=== PATIENT | male | born 1970 | race Hispanic/Latino ===

== ENCOUNTER 2018-09-09 15:56 | Emergency (ER) | payer OTHER ==
[2018-09-09 16:34] VITALS: BP 132/76
--- NOTE | 2018-09-09 16:38 | Event Note ---
ED Screening Note ED Screening Note: pt states that he hurt his back when was younger while lifting and states strained the muscles states they put a cortisone shot and it never hurt again states he has been walking an increased amount pt states that he has disc problems in his lower back also states he is having left lower back pain and left hip pain no PMHx no daily meds no allergies to meds DR. Aguila, orthopedic no fall or injury no BLE numbness or weakness no saddle numbness no bowel or bladder incontinence
--- NOTE | 2018-09-09 16:40 | Emergency Department Report ---
ED Back Pain/Injury HPI - General Chief Complaint: Back Pain/Injury Stated Complaint: HIP/LOWER BACK PAIN Time Seen by Provider: 09/09/18 16:30 Source: patient Limitations: No Limitations - History of Present Illness Initial Comments: pt states that he hurt his back when was "younger while lifting and states strained the muscles" He states they put a cortisone shot and it improved his discomfort. He states he has been walking an increased amount. pt is having chronic left lower back pain and left hip pain. pt states that he has known "disc problems in his lower back also" and has been seeing Dr. Mingo suarez. no PMHx, no daily meds, no allergies to meds. He denies any new fall or injury. no BLE numbness or weakness, no saddle numbness, no bowel or bladder incontinence. pt states that he has chronic right hand weakness and has had an MRI of the head and neck to work it up. - Related Data Previous Rx's Medication Instructions Recorded Last Taken Type Cyclobenzaprine [Flexeril] 10 mg PO QHS PRN #12 tablet 09/09/18 Unknown Rx Ibuprofen [Motrin 800 MG tab] 800 mg PO Q8HR PRN #14 tablet 09/09/18 Unknown Rx Prednisone [predniSONE 10 mg 10 mg PO .TAPER #1 tab.ds.pk 09/09/18 Unknown Rx (6-Day Pack, 21 Tabs)] Allergies Allergy/AdvReac Type Severity Reaction Status Date / Time No Known Allergies Allergy Unverified 09/09/18 16:31 ED Review of Systems ROS: Stated complaint: HIP/LOWER BACK PAIN Other details as noted in HPI Comment: All other systems reviewed and negative ED Past Medical Hx - Past Medical History Previous Medical History?: No - Surgical History Past Surgical History?: No - Social History Smoking Status: Current Every Day Smoker Substance Use Type: Alcohol - Medications Home Medications: Home Medications Medication Instructions Recorded Confirmed Last Taken Type Cyclobenzaprine [Flexeril] 10 mg PO QHS PRN #12 tablet 09/09/18 Unknown Rx Ibuprofen [Motrin 800 MG tab] 800 mg PO Q8HR PRN #14 tablet 09/09/18 Unknown Rx Prednisone [predniSONE 10 mg 10 mg PO .TAPER #1 tab.ds.pk 09/09/18 Unknown Rx (6-Day Pack, 21 Tabs)] ED Physical Exam - General Limitations: No Limitations General appearance: alert, in no apparent distress - Head Head exam: Present: atraumatic, normocephalic - Eye Eye exam: Present: normal appearance, PERRL - ENT ENT exam: Present: mucous membranes moist - Respiratory Respiratory exam: Present: normal lung sounds bilaterally. Absent: respiratory distress, wheezes, rales, rhonchi, stridor, chest wall tenderness, accessory muscle use, decreased breath sounds, prolonged expiratory - Cardiovascular Cardiovascular Exam: Present: regular rate, normal rhythm, normal heart sounds. Absent: systolic murmur, diastolic murmur, rubs, gallop - Extremities Exam Extremities exam: Present: other (FROM of the left hip, no bony TTP of the left hip, has discomfort in the left, lower back with SLR) - Back Exam Back exam: Present: normal inspection, full ROM, paraspinal tenderness (bilateral lumbar paraspinal muscular TTP, no midline C-spine, T-spine, or L- spine tenderness). 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 He states he has been walking an increased amount. pt is having chronic left lower back pain and left hip pain. pt states that he has known "disc problems in his lower back also" and has been seeing Dr. Mingo suarez. no PMHx, no daily meds, no allergies to meds. He denies any new fall or injury. no BLE numbness or weakness, no saddle numbness, no bowel or bladder incontinence. pt states that he has chronic right hand weakness and has had an MRI of the head and neck to work it up. vitals are stable. on exam: FROM of the left hip, no bony TTP of the left hip, has discomfort in the left, lower back with SLR. bilateral lumbar paraspinal muscular TTP, no midline C-spine, T-spine, or L- spine tenderness, 5/5 strength in the BLE, no sensory deficit in the BLE. pt given anti-inflammatory, muscle relaxer, and medrol dose pack. advised to please follow up with an orthopedic doctor in the next 2-3 days. take medication as prescribed. do not drive or operate heavy machinery while taking muscle relaxer. may use heat, ice, epsom salt bath, rest. return to the emergency room for any new or worsening symptoms. - Differential Diagnosis strain, sprain, DDD, DJD, sciatica Critical care attestation.: If time is entered above; I have spent that time in minutes in the direct care of this critically ill patient, excluding procedure time. ED Disposition Clinical Impression: Chronic left hip pain Chronic low back pain Qualifiers: Back pain laterality: left Sciatica presence: without sciatica Qualified Code(s): M54.5 - Low back pain Disposition: TO HOME OR SELFCARE Is pt being admited?: No Does the pt Need Aspirin: No Condition: Stable Instructions: Low Back Strain (ED), Sciatica (ED) Additional Instructions: please follow up with an orthopedic doctor in the next 2-3 days. take medication as prescribed. do not drive or operate heavy machinery while taking muscle relaxer. may use heat, ice, epsom salt bath, rest. Prescriptions: Cyclobenzaprine [Flexeril] 10 mg PO QHS PRN #12 tablet PRN Reason: Muscle Spasm Ibuprofen [Motrin 800 MG tab] 800 mg PO Q8HR PRN #14 tablet PRN Reason: Pain, Moderate (4-6) Prednisone [predniSONE 10 mg (6-Day Pack, 21 Tabs)] 10 mg PO .TAPER #1 tab.ds.pk Referrals: MASHA GARZA MD [Primary Care Provider] - 2-3 Days REHAN BECERRA MD [Staff Physician] - 2-3 Days Time of Disposition: 16:49 Print Language: PORTUGUESE
== END 2018-09-09 17:35 | disposition home or self-care (01) ==
LOC: ED 15:56
DX: G89.29 Other chronic pain (principal); M54.5 Low back pain; M25.552 Pain in left hip; F17.200 Nicotine dependence, unspecified, uncomplicated; Z79.899 Other long term (current) drug therapy
CPT/HCPCS: 99282

== ENCOUNTER 2021-08-09 15:03 | Emergency (ER) | payer SELFPAY ==
[2021-08-09 16:32] VITALS: BP 152/95
--- NOTE | 2021-08-09 17:16 | XRay Report ---
LEFT CLAVICLE 2 VIEW(S) INDICATION / CLINICAL INFORMATION: injury COMPARISON: None available. FINDINGS: BONES / JOINT(S): Acute, transverse fracture through the mid one third of the left clavicle with mini mal displacement. No significant angulation. No significant arthritis. SOFT TISSUES: No significant abnormality. ADDITIONAL FINDINGS: None. Signer Name: Robby Guerrero MD Signed: 08/09/2021 5:11 PM Workstation Name: [email or web address] [facility] [email or web address]
--- NOTE | 2021-08-09 17:17 | XRay Report ---
LEFT HAND 3 VIEW(S) INDICATION / CLINICAL INFORMATION: injury COMPARISON: None available. FINDINGS: BONES / JOINT(S): No acute fracture or subluxation. No significant arthritis. SOFT TISSUES: 3 mm linear radiopacity in the soft tissues dorsal to the small finger proximal phalanx , could represent a small retained foreign body. Recommend clinical correlation. ADDITIONAL FINDINGS: None. Signer Name: Robby Guerrero MD Signed: 08/09/2021 5:13 PM Workstation Name: [email or web address] [id number]
--- NOTE | 2021-08-09 17:18 | XRay Report ---
LEFT FOREARM 2 VIEW(S) INDICATION / CLINICAL INFORMATION: injury COMPARISON: None available. FINDINGS: BONES / JOINT(S): No acute fracture or subluxation. No significant arthritis. SOFT TISSUES: No significant abnormality. ADDITIONAL FINDINGS: None. Signer Name: Robby Guerrero MD Signed: 08/09/2021 5:14 PM Workstation Name: [email or web address] [id number]
== END 2021-08-09 20:00 | disposition left against medical advice (07) ==
LOC: ED 15:03
DX: S19.9XXA Unspecified injury of neck, initial encounter (principal); Z53.21 Procedure and treatment not carried out due to patient leaving prior to being seen by health care provider; X58.XXXA Exposure to other specified factors, initial encounter; Y93.89 Activity, other specified; Y92.89 Other specified places as the place of occurrence of the external cause; Y99.8 Other external cause status